=== PATIENT | female | born 1950 | race Caucasian/White ===

== ENCOUNTER → 2017-08-17 | Day surgery (SDC) | payer BC, MEDICARE | LOC: BICMAMMO 14:34 | PROVIDERS: ATTEND Family Medicine | DX: C50.911 Malignant neoplasm of unspecified site of right female breast (principal); I10 Essential (primary) hypertension; E78.5 Hyperlipidemia, unspecified; M85.80 Other specified disorders of bone density and structure, unspecified site; I34.1 Nonrheumatic mitral (valve) prolapse; I42.9 Cardiomyopathy, unspecified; Z95.810 Presence of automatic (implantable) cardiac defibrillator; Z98.890 Other specified postprocedural states | CPT/HCPCS: 19083; 88305; 88341; 88342; G0206-RT ==

== ENCOUNTER 2017-09-07 08:25 | Outpatient (CLI) | payer BC, MEDICARE | END 2017-09-07 08:26 | disposition home or self-care (01) | LOC: BICMAMMO 08:25 | PROVIDERS: ATTEND Family Medicine | DX: Z78.0 Asymptomatic menopausal state (principal) | CPT/HCPCS: 77080 ==

== ENCOUNTER 2017-09-09 10:12 | Outpatient (CLI) | payer BC, MEDICARE ==
[2017-09-09 12:05] LABS: #Basophils 0.1 thou/uL (0.0-0.2); #Eosinphils 0.1 thou/uL (0.0-0.7); #Lymphocytes 2.5 thou/uL (1.20-3.40); #Monocytes 0.4 thou/uL (0.11-0.59); #Neutrophils 2.6 thou/uL (1.40-6.50); %Basophils 0.9 % (0.0-1.0); %Eosinophils 1.8 % (0.0-10.0); %Lymphocytes 44.6 % (21.0-51.0); %Monocytes 6.2 % (0.0-10.0); %Neutrophils 46.5 % (42.0-75.0); Hemoglobin 12.3 g/dL (12.0-16.0); Mean Corpuscular Hemoglobin 32.8 pg (27.0-31.0); Mean Corpuscular Volume 96.3 fl (81.0-99.0); Mean Platelet Volume 7.7 fL (7.4-10.4); Platelet Count 223 thou/uL (130-400); RBC Distribution Width 11.1 % (11.5-14.5); Red Blood Cell (RBC) Count 3.77 mill/uL (4.20-5.40); White Blood Cell (WBC) Count 5.7 thou/uL (4.8-10.8)
[2017-09-09 12:24] LABS: Anion Gap 12 mmol/L (10-20); BUN (Urea Nitrogen) 15 mg/dL (9.8-20.1); Calc. Creatinine Clearance 0 mL/min (70-130); Calcium 9.7 mg/dL (7.8-10.44); Carbon Dioxide 23 mmol/L (23-31); Chloride 106 mmol/L (98-107); Estimated GFR-MDRD 63; Glucose 105 mg/dL (80-115); Sodium 137 mmol/L (136-145)
== END 2017-09-09 10:13 | disposition home or self-care (01) ==
LOC: LABBT 10:12
PROVIDERS: ATTEND Specialist
DX: Z01.818 Encounter for other preprocedural examination (principal); C50.911 Malignant neoplasm of unspecified site of right female breast
CPT/HCPCS: 80048; 85025; 93005; 93010

== ENCOUNTER 2017-09-15 07:57 | Day surgery (SDC) | payer BC, MEDICARE ==
[2017-09-09 10:36] VITALS: BMI 25.4
[2017-09-15] MEDS ORDERED: Bupivacaine 0.25% HCL 30 ML VIAL ONE ×2 (10:24→11:49)
[2017-09-15] MEDS ORDERED: Lidocaine 2% w/Epinephrine 1:200K 20 ML VIAL ONE (10:24)
--- NOTE | 2017-09-15 10:32 | NM ---
RIGHT BREAST LYMPHOSCINTIGRAPHY: Date; 09/15/17 HISTORY: Malignant neoplasm of unspecified site of right female breast. RADIOPHARMACEUTICAL: 400 microcuries technetium-99m filtered sulfur colloid injected in divided doses in the right periare olar region. FINDINGS: Planar anterior and lateral views of the head, neck, chest, and axilla were obtained. There is increa sed uptake in a right axillary lymph node consistent with sentinel lymph node. No tracer localization is seen in the internal mammary chains on either side or the left axillary lymph nodes. IMPRESSION: Lavinia lymph node in the right axilla. POS: [facility]
[2017-09-15] MEDS ORDERED: CEFAZOLIN/Water 2 GM/20 ML SYRINGE ONE (11:00)
[2017-09-15] MEDS ORDERED: Ketorolac Tromethamine 30 MG/ML VIAL ONE (11:00)
[2017-09-15] MEDS ORDERED: Fentanyl 100 MCG/2 ML VIAL ONE ×2 (11:15→13:48)
[2017-09-15] MEDS ORDERED: HYDROmorphone 0.5 MG/0.5 ML SYRINGE ONE (11:15)
[2017-09-15] MEDS ORDERED: HYDROcodone/Acetaminophen 5/325 mg Tablet ONE (15:32)
[2017-09-15] MEDS ORDERED: Ondansetron HCl/PF 4 MG/2 ML Vial ONE (17:05)
[2017-09-15] MEDS ORDERED: Metoclopramide HCl 10 MG/2 ML VIAL ONE (17:05)
[2017-09-15] MEDS ORDERED: Dexamethasone 20 MG/5 ML VIAL ONE (17:05)
[2017-09-15] MEDS ORDERED: Lidocaine 1% PF 5 ML VIAL ONE (17:05)
[2017-09-15] MEDS ORDERED: PHENYLEPHRINE-NS 100 MCG/ML 10 ML SYRINGE ONE (17:05)
[2017-09-15] MEDS ORDERED: Propofol 200 MG/20 ML VIAL ONE (17:05)
[2017-09-15] MEDS ORDERED: ePHEDrine/0.9% NaCl/PF SYRINGE 50 mg/10 ml ONE (17:05)
--- NOTE | 2017-09-15 19:03 | OP ---
DATE OF PROCEDURE: 09/15/2017 PREOPERATIVE DIAGNOSIS: Right breast cancer. POSTOPERATIVE DIAGNOSIS: Right breast cancer. OPERATION PERFORMED: Right breast ultrasound guided needle localization, right needle localized lump ectomy, right axillary sentinel lymph node biopsy. SURGEON: Fortino Parmar M.D. ANESTHESIA: General endotracheal. INDICATIONS: The patient is a 67-year-old white female. She was recently diagnosed with a breast ca ncer in her upper inner quadrant of her right breast. She was taken to the operating room at this [facility] for definitive treatment of this. She has elected to proceed with breast conserving surgery. Lym phoscintigraphy was performed before going to the operating room, identifying the right axillary sent inel lymph nodes. DESCRIPTION OF OPERATION: Informed consent was obtained, the patient taken to the operating room whe re general endotracheal anesthesia was obtained with the patient in supine position. The right breas t was infiltrated with 3 mL of isosulfan blue in the periareolar subdermal tissue. Breast was massag ed for five minutes. The breast was then prepped with ChloraPrep and draped in sterile fashion to in clude the axilla. Attention was turned to the axilla. Local anesthetic was infiltrated and a transverse incision was c reated at the inferior axilla. Dissection was carried through skin and subcutaneous tissue. Using t he Neoprobe identified the areas of radio intensity. I was able to identify 3 separate radioactive l ymph nodes, two of which contain blue dye and one of which did not. Each lymph node was dissected ci rcumferentially and all investing lymphatics were divided between clamps and 3-0 silk ties. These we re passed off the field for touch prep. Touch prep was negative on each of the 3. The wound was luis sed in layers with 3-0 and 4-0 Monocryl. Additional local anesthetic was infiltrated during closure. Dermabond was placed externally. Attention was turned to the right breast. Using ultrasound, identified the malignancy at about 2 o'c lock radian of the right breast, approximately 5 cm from the nipple. I marked the location of the ma lignancy in a grid fashion across the skin. Utilizing ultrasound guidance, I then advanced a localiz ing needle and wire into the malignancy in a medial to lateral fashion. Transverse incision was then created over the malignancy. The incision included the localizing needl e. Dissection was carried into the breast. Flaps were raised superiorly, inferiorly, and medially. I dissected around the wire and deep to the malignancy in a medial to lateral fashion. I then remov ed wide lump of tissue around the localizing needle, utilizing combination of electrocautery and ana paula p dissection. The specimen was removed from within the breast and checked with ultrasound. It appea red that I had clean margins all the way around the malignancy. The specimen was oriented with sutur e, passed off the field for specimen mammography. This revealed removal of the malignancy with a wir e within it and the clip. Examination of the wound revealed that it was hemostatic. It was closed in layers with 3-0 and 4-0 M onocryl. Additional local anesthetic was infiltrated. Dermabond was placed externally. There were no complications. The patient tolerated the procedure well and was taken to recovery in stable condi tion.
== END 2017-09-15 16:53 | disposition home or self-care (01) ==
LOC: SDC 07:57
PROVIDERS: ATTEND Specialist
PROC: 0HBT0ZZ Excision of Right Breast, Open Approach (ICD-10-PCS; principal; 2017-09-15)
PROC: 07B50ZX Excision of Right Axillary Lymphatic, Open Approach, Diagnostic (ICD-10-PCS; principal; 2017-09-15)
DX: C50.211 Malignant neoplasm of upper-inner quadrant of right female breast (principal); E78.5 Hyperlipidemia, unspecified; E03.9 Hypothyroidism, unspecified; M85.80 Other specified disorders of bone density and structure, unspecified site; I34.1 Nonrheumatic mitral (valve) prolapse; I11.9 Hypertensive heart disease without heart failure; F41.9 Anxiety disorder, unspecified; Z17.0 Estrogen receptor positive status [ER+]; Z79.82 Long term (current) use of aspirin; Z79.899 Other long term (current) drug therapy; Z95.810 Presence of automatic (implantable) cardiac defibrillator; Z98.818 Other dental procedure status; Z98.890 Other specified postprocedural states
CPT/HCPCS: 76098; 78195; 88307; 88333; 88342; 96374; A9541; J0131; J1100; J1170; J1885; J2001; J2405; J2704; J2765; J3010; Q9968; S0020

== ENCOUNTER 2017-09-19 10:57 | Observation (INO) | payer BC, MEDICARE ==
[2017-09-19 11:53] LABS: #Basophils 0.1 thou/uL (0.0-0.2); #Eosinphils 0.1 thou/uL (0.0-0.7); #Lymphocytes 2.2 thou/uL (1.20-3.40); #Monocytes 0.6 thou/uL (0.11-0.59); #Neutrophils 3.7 thou/uL (1.40-6.50); %Basophils 0.8 % (0.0-1.0); %Lymphocytes 32.7 % (21.0-51.0); %Monocytes 8.8 % (0.0-10.0); %Neutrophils 55.7 % (42.0-75.0); Hemoglobin 12.1 g/dL (12.0-16.0); Mean Corpuscular Volume 96.9 fl (81.0-99.0); Mean Platelet Volume 7.4 fL (7.4-10.4); Platelet Count 235 thou/uL (130-400); Red Blood Cell (RBC) Count 3.78 mill/uL (4.20-5.40); White Blood Cell (WBC) Count 6.6 thou/uL (4.8-10.8)
[2017-09-19 12:17] LABS: ALT (SGPT) 16 U/L (8-55); AST (SGOT) 22 U/L (5-34); Albumin 4.1 g/dL (3.4-4.8); Alkaline Phosphatase 72 U/L (40-150); Anion Gap 12 mmol/L (10-20); BUN (Urea Nitrogen) 21 mg/dL (9.8-20.1); Bilirubin, Total 0.9 mg/dL (0.2-1.2); CK (CPK) 45 U/L (29-168); Calc. Creatinine Clearance 0 mL/min (70-130); Calcium 9.9 mg/dL (7.8-10.44); Carbon Dioxide 27 mmol/L (23-31); Chloride 102 mmol/L (98-107); Estimated GFR-MDRD 49; Globulin 3.4 g/dL (2.4-3.5); Glucose 95 mg/dL (80-115); Potassium 4.7 mmol/L (3.5-5.1); Protein, Total 7.5 g/dL (6.0-8.3); Sodium 136 mmol/L (136-145)
[2017-09-19 12:25] LABS: CKMB 0.8 ng/mL (0-6.6); Troponin I Less than 0.010 ng/mL (< 0.028)
[2017-09-19 14:04] LABS: Bilirubin Negative (Negative); Blood, Urine Negative (Negative); Clarity CLEAR (Clear); Glucose, Urine (Dipstick) Negative (Negative); Leukocyte Small (Negative); Nitrite Negative (Negative); Protein, Urine (Dipstick) Negative (Neg-Trace); Specific Gravity, Urine 1.008 (1.002-1.036); pH, Urine 7.5 (5.0-9.0)
[2017-09-19 14:06] LABS: Bacteria/HPF None Seen HPF (None Seen); Hyaline Casts/LPF 0-3 HYALINE CAST LPF (0-3 Hyaline); Pathc Cast-AUWi Flag 0.13 (0-2.49); RBC/HPF 0-3 HPF (0-3); Squamous Epithelial None Seen HPF (0-3); WBC/HPF 0-3 HPF (0-3)
[2017-09-19] MEDS ORDERED: HYDROcodone/Acetaminophen 5/325 mg Tablet PO PRN (17:18)
[2017-09-19] MEDS ORDERED: Ondansetron ODT 4 MG TAB PO PRN (17:18)
[2017-09-19] MEDS ORDERED: Acetaminophen 325 MG TAB PO PRN (17:18)
[2017-09-19] MEDS ORDERED: Sodium Chloride 0.9% 1,000 ML IV SCH (17:30)
[2017-09-19 20:31] VITALS: BMI 26.0
[2017-09-19] MEDS: Rosuvastatin 20 MG TAB PO SCH (21:02)
[2017-09-19] MEDS: Famotidine 20 MG TAB PO SCH (21:05)
--- NOTE | 2017-09-19 21:32 | HP ---
HISTORY OF PRESENT ILLNESS: This is a 67-year-old white female with a history of chronic systolic co ngestive heart failure, hyperlipidemia who is several days postop breast lumpectomy for intraductal b reast cancer who presents with near syncope. The patient just had surgery several days ago. The pro cedure went smoothly and was uneventful by Dr. Parmar. No complaints of any bleeding or pain from t he wound site. This morning, she had breakfast and following this she became very lightheaded and fe lt like passing out. She did not have any complaints of chest pain, shortness of breath, diaphoresis , nausea or vomiting. She was told to come to the emergency room for evaluation. In the ER, she rec eived 1 L of fluid, and at this time, she is feeling much better. Her dizziness has resolved, but sh e remained orthostatic. Her blood pressure at this time is in the 90s/60s. However, she feels fine and wants to go home. I instructed her we will keep her overnight to observe her. PAST MEDICAL HISTORY: Includes hypertension, hyperlipidemia, hypothyroidism, intraductal breast carc inoma, osteopenia, mitral valve prolapse, chronic systolic congestive heart failure, nonischemic card iomyopathy followed by Dr. Gutierres, and anxiety disorder. PAST SURGICAL HISTORY: Include status post breast lumpectomy [address] Parmar, wisdom teeth , varicosis veins, colonoscopy normal by Dr. Jason, defibrillator placement, AICD placement in 2008 an d 2015. FAMILY HISTORY: Parents are both . Mother had renal failure. Siblings with hyperlipidemia. No family history of cancer. SOCIAL HISTORY: She does not smoke, does not drink. She is retired from [employer] as of 2014. She is to [place]. She has 3 kids, 2 steps and 12 grand. MEDICATIONS: Include Coreg 80 ER daily, magnesium 600 b.i.d., aspirin 81 daily, Zoloft 100 daily, sp ironolactone 25 mg daily, calcium plus D3 600/200 daily, CoQ10 200 daily, multivitamin daily, fish oi l 1000 b.i.d., Crestor 20 daily, Fosamax 70 q.week, and Diovan 160 q.a.m. ALLERGIES: None. REVIEW OF SYSTEMS: As above. PHYSICAL EXAMINATION: VITAL SIGNS: Blood pressure 90/60, pulse 80, respiration 14, afebrile. GENERAL: No acute distress at this time. HEENT: Clear. HEART: Regular rate and rhythm. LUNGS: Clear. ABDOMEN: Soft. EXTREMITIES: With no edema. LABORATORY AND X-RAY FINDINGS: UA clear. Electrolytes normal. Creatinine 1.12, BUN 21. Troponin I less than 0.010. BNP 40.9, White count 6.6, H and H 12 and 36. ASSESSMENT: 1. Near syncope, possibly related to being postop as well as decreased appetite lately. Suspect she is not back to baseline and her antihypertensives are probably causing her to have hypotension. She may have a slight issue with dehydration also contributing to lightheadedness. 2. Dehydration. 3. Postop breast lumpectomy. 4. Hypertension. 5. Hyperlipidemia. 6. Chronic systolic congestive heart failure. 7. Nonischemic cardiomyopathy. PLAN: 1. Observe overnight. 2. Slow hydration. 3. Cardiac diet. 4. Hold Coreg and valsartan for today.
[2017-09-20] MEDS: Levothyroxine Sodium 125 MCG TAB PO SCH (04:33)
[2017-09-20 04:44] LABS: #Eosinphils 0.1 thou/uL (0.0-0.7); #Lymphocytes 2.7 thou/uL (1.20-3.40); #Monocytes 0.5 thou/uL (0.11-0.59); #Neutrophils 2.8 thou/uL (1.40-6.50); %Basophils 0.6 % (0.0-1.0); %Eosinophils 2.2 % (0.0-10.0); %Lymphocytes 44.6 % (21.0-51.0); %Monocytes 7.6 % (0.0-10.0); Hemoglobin 11.3 g/dL (12.0-16.0); Mean Corpuscular Hemoglobin 31.7 pg (27.0-31.0); Mean Corpuscular Volume 96.3 fl (81.0-99.0); Mean Platelet Volume 7.3 fL (7.4-10.4); Platelet Count 195 thou/uL (130-400); Red Blood Cell (RBC) Count 3.56 mill/uL (4.20-5.40); White Blood Cell (WBC) Count 6.1 thou/uL (4.8-10.8)
[2017-09-20 05:11] LABS: Anion Gap 12 mmol/L (10-20); BUN (Urea Nitrogen) 15 mg/dL (9.8-20.1); Calc. Creatinine Clearance 82 mL/min (70-130); Calcium 9.3 mg/dL (7.8-10.44); Carbon Dioxide 24 mmol/L (23-31); Chloride 107 mmol/L (98-107); Estimated GFR-MDRD 73; Glucose 95 mg/dL (80-115); Potassium 4.1 mmol/L (3.5-5.1); Sodium 139 mmol/L (136-145)
[2017-09-20] MEDS ORDERED: Spironolactone 25 MG TAB PO SCH (08:00)
--- NOTE | 2017-09-20 08:09 | PRG ---
DATE OF SERVICE: 09/20/2017 SUBJECTIVE: No complaints of chest pain, lightheadedness, dizziness. The patient states she is ambu lating to the restroom without any difficulty. However, the patient's vitals can remain orthostatic. OBJECTIVE: VITAL SIGNS: Temperature 97.8, pulse 80, respiration 20, blood pressure 84/53, 65/40. HEART: Regular rate and rhythm. LUNGS: Clear. ABDOMEN: Soft. BREAST: Right breast with minimal swelling, no bleeding, wound clear. EXTREMITIES: With no edema. LABORATORY: White count 6.1, H&H 11 and 34. Electrolytes normal. Creatinine 0.79, BUN 15, troponin less than 0.010. BNP 40.9. ASSESSMENT: 1. Orthostatic hypotension. The patient remains asymptomatic. Her blood pressure is quite low. Ye t to resume her Coreg or valsartan. 2. Dehydration, resolved. 3. Postop breast lumpectomy. 4. Hypertension. 5. Hyperlipidemia. 6. Chronic systolic congestive heart failure. 7. Nonischemic cardiomyopathy. PLAN: 1. Consult Dr. Gutierres. 2. Continue activity. 3. Most likely will have to decrease her cardiac meds. 4. Consult Dr. Parmar simply for a followup status post lumpectomy.
[2017-09-20] MEDS: Famotidine 20 MG TAB PO SCH ×2 (08:53→22:10)
[2017-09-20] MEDS: Enoxaparin Sodium 40 MG/0.4 ML SYRINGE SC SCH (08:54)
--- NOTE | 2017-09-20 10:29 | PRG ---
DATE OF SERVICE: 09/20/2017 SUBJECTIVE: Ms. Emanuel is postoperative day #5, following right breast lumpectomy and right axillary sentinel lymph node biopsy. She was admitted to the hospital yesterday secondary to near syncopal e pisode. She is currently resting in bed on the telemetry/observation floor, and has no complaints cu rrently. She denies any breast or axillary discomfort. Her pathology results revealed that the malignancy in her right breast was completely excised and her sentinel lymph nodes were negative. Her cancer was 1.4 cm in size that she has a pathologic stage I breast cancer (T1 N0). Her hemoglobin level upon admission was stable from before her surgery at 12 .1. The patient notes that she has got a moderate amount of right breast ecchymosis following the gould rgery. OBJECTIVE: VITAL SIGNS: She is afebrile, pulse is 65-70, blood pressure currently is 101/58 but was apparently as low as 65/40 when she was standing yesterday. LUNGS: Clear to auscultation. ABDOMEN: Benign. BREASTS: Reveal moderate ecchymosis on the right breast extending over to the medial left breast. T he incision in the right breast and axilla are both healing nicely and Dermabond is intact. There is a suggestion of fullness underlying the incision in the right breast and this is probably associated with a small wound hematoma that is expected after this procedure. ASSESSMENT AND PLAN: The patient is doing very well following her right breast cancer. [facility]. I would like to see her at that time so I can ultrasound the right breast to inspect for wound hematoma. I anticipate referring her to Radiation Oncology and On cology in the near future to continue her adjuvant therapy for breast cancer.
--- NOTE | 2017-09-20 13:23 | PRG ---
DATE OF SERVICE: 09/20/2017 SUBJECTIVE: Ms. Emanuel is admitted to the hospital yesterday with orthostatic hypotension. She has a history of compensated congestive heart failure. She recently had a surgery for a breast mass. Sh e is lightheaded yesterday and orthostatic. PHYSICAL EXAMINATION: VITAL SIGNS: Blood pressure was as low as 65/40 at 4 a.m. and 80/50 at 10 a.m. LUNGS: Clear. CARDIAC: Normal S1, normal S2. ABDOMEN: Soft, nontender. EXTREMITIES: There is no edema. ASSESSMENT AND PLAN: 1. Orthostatic hypotension secondary to medications and volume depletion. Plan replete fluid. 2. Hold heart failure medicines at the present time.
[2017-09-20] MEDS: Sodium Chloride 0.9% 1,000 ML IV SCH ×2 (14:31→22:09)
[2017-09-20 16:51] VITALS: TEMP 98.1
[2017-09-20] MEDS: Rosuvastatin 20 MG TAB PO SCH (22:10)
[2017-09-20] MEDS ORDERED: Sodium Chloride 0.9% 1,000 ML IV SCH (22:30)
[2017-09-21] MEDS: Levothyroxine Sodium 125 MCG TAB PO SCH (04:40)
--- NOTE | 2017-09-21 07:53 | PRG ---
DATE OF SERVICE: 09/21/2017 SUBJECTIVE: The patient is doing well. No complaints of lightheadedness, dizziness, chest pain, belgica rtness of breath, nausea or vomiting. OBJECTIVE: VITAL SIGNS: Temperature 98.1, pulse 65, respirations 18, pulse ox 96, blood pressure 100/52. HEART: Regular rate and rhythm. LUNGS: Clear. ABDOMEN: Soft. EXTREMITIES: With no edema. ASSESSMENT: 1. Orthostatic hypotension. The patient remains asymptomatic. Blood pressure also remains low, but improving. 2. Dehydration, resolved. 3. Postop breast lumpectomy. 4. Hypertension. 5. Hyperlipidemia. 6. Chronic systolic congestive heart failure. 7. Nonischemic cardiomyopathy. PLAN: 1. Continue hydration. 2. At some point will have to resume cardiac medications. 3. Plan to discharge home when okay with Dr. Gutierres. 4. Follow up with Dr. Parmar on Tuesday in the clinic.
[2017-09-21] MEDS: Enoxaparin Sodium 40 MG/0.4 ML SYRINGE SC SCH (08:30)
[2017-09-21] MEDS: Famotidine 20 MG TAB PO SCH (08:30)
[2017-09-21] MEDS ORDERED: Sodium Chloride 0.9% 1,000 ML IV SCH (11:00)
[2017-09-21] MEDS: Sodium Chloride 0.9% 1,000 ML IV SCH ×2 (11:15→11:16)
[2017-09-21 12:04] LABS: #Eosinphils 0.1 thou/uL (0.0-0.7); #Lymphocytes 2.4 thou/uL (1.20-3.40); #Monocytes 0.5 thou/uL (0.11-0.59); %Basophils 0.6 % (0.0-1.0); %Eosinophils 1.7 % (0.0-10.0); %Lymphocytes 39.7 % (21.0-51.0); %Monocytes 8.3 % (0.0-10.0); %Neutrophils 49.6 % (42.0-75.0); Hemoglobin 11.1 g/dL (12.0-16.0); Mean Corpuscular HGB CONC 33.8 g/dL (32.0-36.0); Mean Corpuscular Hemoglobin 32.3 pg (27.0-31.0); Mean Corpuscular Volume 95.5 fl (81.0-99.0); Mean Platelet Volume 6.8 fL (7.4-10.4); Platelet Count 204 thou/uL (130-400); Red Blood Cell (RBC) Count 3.44 mill/uL (4.20-5.40)
[2017-09-21 12:53] VITALS: BP 116/62
--- NOTE | 2017-09-24 13:23 | EKG ---
Test Reason : Blood Pressure : / mmHG Vent. Rate : 066 BPM Atrial Rate : 066 BPM P-R Int : 134 ms QRS Dur : 074 ms QT Int : 432 ms P-R-T Axes : 052 008 000 degrees QTc Int : 452 ms Poor data quality, interpretation may be adversely affected Normal sinus rhythm with sinus arrhythmia Normal ECG Confirmed by LEANDRO DOUGLAS ([id number]), assistant film editor CUCO RAMOS ([id number]) on 09/24/2017 1:22:52 PM Referred By: Confirmed By:LEANDRO DOUGLAS
== END 2017-09-21 13:32 | disposition home or self-care (01) ==
LOC: ERS 10:57 → 2SW 17:06
PROVIDERS: ADMIT Family Medicine; ATTEND Family Medicine
DX: I95.1 Orthostatic hypotension (principal); E86.0 Dehydration; E78.5 Hyperlipidemia, unspecified; I11.0 Hypertensive heart disease with heart failure; I50.22 Chronic systolic (congestive) heart failure; I42.8 Other cardiomyopathies; E03.9 Hypothyroidism, unspecified; D05.10 Intraductal carcinoma in situ of unspecified breast; M85.80 Other specified disorders of bone density and structure, unspecified site; I34.1 Nonrheumatic mitral (valve) prolapse; F41.9 Anxiety disorder, unspecified; Z79.82 Long term (current) use of aspirin; Z79.899 Other long term (current) drug therapy; Z98.890 Other specified postprocedural states; Z98.818 Other dental procedure status; Z95.810 Presence of automatic (implantable) cardiac defibrillator
CPT/HCPCS: 36415; 80048; 80053; 81003; 81015; 82550; 82553; 83880; 84484; 85025; 87086; 93005; 96360; 96361; 96372; G0378; J1650

== ENCOUNTER 2017-11-30 13:32 | Emergency (ER) | payer OTHER, BC, MEDICARE ==
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
--- NOTE | 2017-11-30 15:04 | CT ---
CT HEAD NONCONTRAST: Date: 11/30/17 COMPARISON: 01/17/17. CLINICAL HISTORY: Headache, neck pain. FINDINGS: The ventricular system is normal in size. Septum pellucidum and third ventricle are midline. There is no evidence of intracranial hemorrhage, mass effect, or midline shift. Minimal chronic microvascular ischemic disease present. There is mild opacification at the inferior mastoid air cells. IMPRESSION: No acute intracranial abnormalities. POS: [facility]
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
== END 2017-11-30 15:10 | disposition home or self-care (01) ==
LOC: ERS 13:32
DX: S13.4XXA Sprain of ligaments of cervical spine, initial encounter (principal); M54.5 Low back pain; I11.0 Hypertensive heart disease with heart failure; I50.9 Heart failure, unspecified; E03.9 Hypothyroidism, unspecified; E78.5 Hyperlipidemia, unspecified; F32.9 Major depressive disorder, single episode, unspecified; V43.52XA Car driver injured in collision with other type car in traffic accident, initial encounter; Z79.899 Other long term (current) drug therapy; Z79.82 Long term (current) use of aspirin
CPT/HCPCS: 70450; 72100; 72125

== ENCOUNTER 2018-08-30 09:15 | Outpatient (CLI) | payer MEDICARE, OTHER | END 2018-08-30 09:16 | disposition home or self-care (01) | LOC: BICMAMMO 09:15 | PROVIDERS: ATTEND Specialist | DX: C50.211 Malignant neoplasm of upper-inner quadrant of right female breast (principal) | CPT/HCPCS: 77066; G0279 ==

== ENCOUNTER 2019-03-12 08:23 | Outpatient (CLI) | payer MEDICARE, OTHER ==
--- NOTE | 2019-03-12 12:05 | BD ---
DEXA BONE DENSITY STUDY: Date: 03/12/19 HISTORY: Osteoporosis. COMPARISON: DEXA study from 2018. FINDINGS: Lumbar Spine: BMD (g/cm2) L1 1.029 T-Score: 0.4 Z-Score: 2.0 L2 1.123 T-Score: 0.9 Z-Score: 2.7 L3 1.049 T-Score: -0.3 Z-Score: 1.6 L4 1.010 T-Score: -0.5 Z-Score: 1.6 L1-L4 1.052 T-Score: 0.0 Z-Score: 1.9 WHO Classification: Normal. Left Femoral Neck: 0.789 T-Score: -0.5 Z-Score: 1.1 Total Femur: 0.917 T-Score: -0.2 Z-Score: 1.1 WHO Classification: Normal. IMPRESSION: Normal bone mineral density. Bone mineral density is similar to the comparison exam. POS: [facility]
== END 2019-03-12 08:24 | disposition home or self-care (01) ==
LOC: BICMAMMO 08:23
PROVIDERS: ATTEND Internal Medicine Hematology & Oncology
DX: Z13.820 Encounter for screening for osteoporosis (principal); C50.911 Malignant neoplasm of unspecified site of right female breast
CPT/HCPCS: 77080

== ENCOUNTER 2019-06-26 15:45 | Outpatient (CLI) | payer MEDICARE, OTHER ==
--- NOTE | 2019-06-26 16:02 | RAD ---
Exam: XR Hip Rt 2-3 View HISTORY: Straightening of muscle of right hip. Right hip pain for one week. COMPARISON: None FINDINGS: Degenerative changes are seen at the pubic symphysis and involving the right sacroiliac joint. No acute fracture, dislocation, or other acute osseous abnormality is identified. IMPRESSION: No acute osseous abnormality is identified.
== END 2019-06-26 15:46 | disposition home or self-care (01) ==
LOC: BICRAD 15:45
PROVIDERS: ATTEND Family Medicine
DX: S76.011A Strain of muscle, fascia and tendon of right hip, initial encounter (principal)

== ENCOUNTER 2019-08-29 09:19 | Outpatient (CLI) | payer MEDICARE, OTHER ==
--- NOTE | 2019-08-29 10:17 | MMO ---
Bilateral MAMMO Bilat Diag [facility]. CLINICAL HISTORY: Patient is 69 years old and is seen for diagnostic exam. The patient has no family history of breast cancer. The patient has no personal history of cancer. The patient has a history of right Ultrasound Guided Core Biopsy in July, and right Lumpectomy in 2018 - malignant. VIEWS: The views performed were: bilateral craniocaudal with tomosynthesis; bilateral mediolateral oblique with tomosynthesis; and bilateral mediolateral with tomosynthesis. FILMS COMPARED: The present examination has been compared to prior imaging studies performed at [facility] on 05/03/2008, 05/19/2012, 06/23/2017 and 08/30/2018. This study has been interpreted with the assistance of computer-aided detection. MAMMOGRAM FINDINGS: There are scattered fibroglandular densities. Finding 1: There are stable post operative changes seen in the right breast. Finding 2: There are stable benign appearing calcifications seen in both breasts. There are no suspicious masses, suspicious calcifications, or new areas of architectural distortion. IMPRESSION: THERE IS NO MAMMOGRAPHIC EVIDENCE OF MALIGNANCY. A ROUTINE FOLLOW-UP MAMMOGRAM IN 1 YEAR IS RECOMMENDED. THE RESULTS OF THIS EXAM WERE SENT TO THE PATIENT. ACR BI-RADS Category 2 - Benign finding MAMMOGRAPHY NOTE: 1. A negative mammogram report should not delay a biopsy if a dominant of clinically suspicious mass is present. 2. Approximately 10% to 15% of breast cancers are not detected by mammography. 3. Adenosis and dense breasts may obscure an underlying neoplasm. Reported by: GEE CORONA MD Electonically Signed: [id number]
== END 2019-08-29 09:20 | disposition home or self-care (01) ==
LOC: BICMAMMO 09:19
PROVIDERS: ATTEND Specialist
DX: Z08 Encounter for follow-up examination after completed treatment for malignant neoplasm (principal); Z85.3 Personal history of malignant neoplasm of breast; Z98.890 Other specified postprocedural states; Z91.89 Other specified personal risk factors, not elsewhere classified
CPT/HCPCS: 77066; G0279

== ENCOUNTER 2020-09-01 09:32 | Outpatient (CLI) | payer MEDICARE, OTHER ==
--- NOTE | 2020-09-01 10:20 | MMO ---
Bilateral MAMMO Bilat Screen [facility]. CLINICAL HISTORY: Patient is 70 years old and is seen for screening. The patient has no family history of breast cancer. The patient has no personal history of cancer. The patient has a history of right Ultrasound Guided Core Biopsy in July, and right Lumpectomy in 2018 - malignant. VIEWS: The views performed were: bilateral craniocaudal with tomosynthesis and bilateral mediolateral oblique with tomosynthesis. FILMS COMPARED: The present examination has been compared to prior imaging studies performed at [facility] on 05/19/2012, 06/23/2017, 08/30/2018 and 08/29/2019. This study has been interpreted with the assistance of computer-aided detection. MAMMOGRAM FINDINGS: There are scattered fibroglandular densities. Finding 1: There are stable post operative changes seen in the right breast. Finding 2: There are stable benign appearing calcifications seen in both breasts. There are no suspicious masses, suspicious calcifications, or new areas of architectural distortion. IMPRESSION: THERE IS NO MAMMOGRAPHIC EVIDENCE OF MALIGNANCY. A ROUTINE FOLLOW-UP MAMMOGRAM IN 1 YEAR IS RECOMMENDED. THE RESULTS OF THIS EXAM WERE SENT TO THE PATIENT. ACR BI-RADS Category 2 - Benign finding MAMMOGRAPHY NOTE: 1. A negative mammogram report should not delay a biopsy if a dominant of clinically suspicious mass is present. 2. Approximately 10% to 15% of breast cancers are not detected by mammography. 3. Adenosis and dense breasts may obscure an underlying neoplasm. Reported by: GEE CORONA MD Electonically Signed: [id number]
== END 2020-09-01 09:33 | disposition home or self-care (01) ==
LOC: BICMAMMO 09:32
PROVIDERS: ATTEND Specialist
DX: Z12.31 Encounter for screening mammogram for malignant neoplasm of breast (principal); Z85.3 Personal history of malignant neoplasm of breast; Z98.890 Other specified postprocedural states
CPT/HCPCS: 77063; 77067

== ENCOUNTER 2020-10-16 11:04 | Outpatient (CLI) | payer MEDICARE, OTHER | END 2020-10-16 11:05 | disposition home or self-care (01) | LOC: BICRAD 11:04 | PROVIDERS: ATTEND Internal Medicine Cardiovascular Disease | DX: I42.8 Other cardiomyopathies (principal); Z95.810 Presence of automatic (implantable) cardiac defibrillator | CPT/HCPCS: 71046 ==

== ENCOUNTER 2021-09-03 09:58 | Outpatient (CLI) | payer MEDICARE, OTHER | END 2021-09-03 09:59 | disposition home or self-care (01) | LOC: BICMAMMO 09:58 | PROVIDERS: ATTEND Specialist | DX: Z12.31 Encounter for screening mammogram for malignant neoplasm of breast (principal); Z98.890 Other specified postprocedural states; Z85.3 Personal history of malignant neoplasm of breast | CPT/HCPCS: 77063; 77067 ==

== ENCOUNTER 2022-09-06 13:19 | Outpatient (CLI) | payer MEDICARE, OTHER | END 2022-09-06 13:20 | disposition home or self-care (01) | LOC: BICMAMMO 13:19 | PROVIDERS: ATTEND Specialist | DX: Z85.3 Personal history of malignant neoplasm of breast (principal); Z98.890 Other specified postprocedural states | CPT/HCPCS: 77066; G0279 ==

== ENCOUNTER 2023-09-12 09:02 | Outpatient (CLI) | payer MEDICARE, OTHER | END 2023-09-12 09:03 | disposition home or self-care (01) | LOC: BICMAMMO 09:02 | PROVIDERS: ATTEND Internal Medicine Hematology & Oncology | DX: Z12.31 Encounter for screening mammogram for malignant neoplasm of breast (principal); Z98.890 Other specified postprocedural states | CPT/HCPCS: 77063; 77067 ==

== ENCOUNTER 2023-12-02 09:44 | Outpatient (CLI) | payer MEDICARE, OTHER | END 2023-12-02 09:45 | disposition home or self-care (01) | LOC: BICMAMMO 09:44 | PROVIDERS: ATTEND Family Medicine | DX: Z13.820 Encounter for screening for osteoporosis (principal); Z78.0 Asymptomatic menopausal state | CPT/HCPCS: 77080 ==

== ENCOUNTER 2024-09-01 18:34 | Emergency (ER) | payer MEDICARE, OTHER ==
[2024-09-01] MEDS ORDERED: Acetaminophen 500 MG TAB ONE (19:29)
== END 2024-09-01 20:45 | disposition home or self-care (01) ==
LOC: ERS 18:34
DX: S06.0X0A Concussion without loss of consciousness, initial encounter (principal); S39.012A Strain of muscle, fascia and tendon of lower back, initial encounter; S40.012A Contusion of left shoulder, initial encounter; I11.0 Hypertensive heart disease with heart failure; I50.9 Heart failure, unspecified; E78.5 Hyperlipidemia, unspecified; E03.9 Hypothyroidism, unspecified; V89.2XXA Person injured in unspecified motor-vehicle accident, traffic, initial encounter; Z79.82 Long term (current) use of aspirin; Z79.899 Other long term (current) drug therapy
CPT/HCPCS: 70450; 72100

== ENCOUNTER 2024-09-14 09:01 | Outpatient (CLI) | payer MEDICARE, OTHER | END 2024-09-14 09:02 | disposition home or self-care (01) | LOC: BICMAMMO 09:01 | PROVIDERS: ATTEND Nurse Practitioner Family | DX: Z12.31 Encounter for screening mammogram for malignant neoplasm of breast (principal); Z98.890 Other specified postprocedural states | CPT/HCPCS: 77063; 77067 ==

== ENCOUNTER 2025-06-11 09:30 | Day surgery (SDC) | payer MEDICARE, OTHER ==
[2025-06-07 11:26] VITALS: BMI 25.3
[2025-06-07 11:53] LABS: #Basophils 0.05 10x3/uL (0.0-0.2); #Eosinophils 0.10 10x3/uL (0.0-0.7); #Monocytes 0.45 10x3/uL (0.11-0.59); #Neutrophils 3.35 10x3/uL (1.40-6.50); %Basophils 0.8 % (0.0-1.0); %Eosinophils 1.6 % (0.0-10.0); %Lymphocytes 34.7 % (21.0-51.0); %Monocytes 7.4 % (0.0-10.0); %Neutrophils 55.2 % (42.0-75.0); Hematocrit 41.9 % (36.0-47.0); Hemoglobin 13.4 g/dL (12.0-16.0); Mean Corpuscular Hemoglobin 30.1 pg (27.0-31.0); Mean Corpuscular Volume 94.2 fL (78.0-98.0); Platelet Count 210 10x3/uL (130-400); Red Blood Cell (RBC) Count 4.45 mill/uL (4.20-5.40); White Blood Cell (WBC) Count 6.08 10x3/uL (4.8-10.8)
[2025-06-07 12:07] LABS: INR-International Normal Ratio 1.2; PTT 29.0 sec (22.9-36.1); Prothrombin Time 15.3 sec (12.0-14.7)
[2025-06-07 12:44] LABS: ALT (SGPT) 12 U/L (Less than 34); AST (SGOT) 21 U/L (11-34); Albumin 3.9 g/dL (3.1-4.5); Alkaline Phosphatase 84 U/L (40-110); Anion Gap 13 mmol/L (10-20); BUN (Urea Nitrogen) 18 mg/dL (9.8-20.1); Bilirubin, Total 0.5 mg/dL (0.3-1.2); Calc. Creatinine Clearance 0 mL/min (70-130); Calcium 9.6 mg/dL (7.8-10.44); Carbon Dioxide 26 mmol/L (23-31); Chloride 106 mmol/L (98-107); Globulin 3.7 g/dL (2.4-3.5); Glucose 88 mg/dL (83-110); Potassium 4.5 mmol/L (3.5-5.1); Sodium 140 mmol/L (136-145)
[2025-06-08 08:14] LABS: Myoglobin, Serum 30.0 ng/mL (25-58)
[2025-06-10 12:37] LABS: Hemoglobin,Free - Plasma 4.2 mg/dL (0.0-4.9)
[2025-06-11] MEDS ORDERED: Heparin 10,000 UNITS/ 10 ML VIAL ONE (10:06)
[2025-06-11] MEDS ORDERED: Isoproterenol 0.2 MG/1 ML AMP ONE (10:06)
[2025-06-11] MEDS ORDERED: Rocuronium Bromide 10 MG/ML (10ML VIAL) ONE (10:23)
[2025-06-11] MEDS ORDERED: Etomidate 40 MG (20 mL) VIAL ONE (10:23)
[2025-06-11] MEDS ORDERED: PROPOFOL 200 MG/20 ML VIAL ONE (12:59)
[2025-06-11] MEDS ORDERED: Lidocaine 1% PF 5 ML VIAL ONE (12:59)
[2025-06-11] MEDS ORDERED: Ondansetron PF 4 MG/2 ML Vial ONE (12:59)
[2025-06-11] MEDS ORDERED: PHENYLEPHRINE-NS 100 MCG/ML 10 ML SYRINGE ONE (12:59)
[2025-06-11] MEDS ORDERED: SUGAMMADEX SODIUM 200 MG/2 ML VIAL ONE (14:45)
== END 2025-06-11 18:05 | disposition home or self-care (01) ==
LOC: SDC 09:30
PROVIDERS: ATTEND Internal Medicine Cardiovascular Disease
DX: I48.0 Paroxysmal atrial fibrillation (principal); I11.0 Hypertensive heart disease with heart failure; I50.9 Heart failure, unspecified; I25.10 Atherosclerotic heart disease of native coronary artery without angina pectoris; E78.00 Pure hypercholesterolemia, unspecified; I42.8 Other cardiomyopathies; E03.9 Hypothyroidism, unspecified; I73.9 Peripheral vascular disease, unspecified; Z95.810 Presence of automatic (implantable) cardiac defibrillator; Z79.899 Other long term (current) drug therapy
CPT/HCPCS: 80053; 83010; 83051; 83874; 85025; 85347 ×2; 85610; 85730; 86850; 86900; 86901; 93623; 93656; 93657; J1644 ×2; J2250; J2720; J3010; 93005; J2405; J2704